=== PATIENT | male | born 1950 | race Caucasian/White ===

== ENCOUNTER 2024-08-27 22:19 | Emergency (ER) | payer OTHER ==
[~2024-08-27] VITALS: Ht 177.8 cm; Wt 75.0 kg
[2024-08-27 22:25] VITALS: O2SAT 100
[2024-08-28 00:15] VITALS: BP 151/83; PULSE 89; RESP 16; TEMP 36.83628; O2SAT 99
[2024-08-28] MEDS: ACETAMINOPHEN 325MG TABLET PO ONE (00:30)
[2024-08-28] MEDS ORDERED: IBUP-2029 MT (08:01)
== END 2024-08-28 03:22 | disposition home or self-care (01) ==
LOC: ER 22:19
DX: M79.672 Pain in left foot (principal); I10 Essential (primary) hypertension; Z59.00 Homelessness unspecified
CPT/HCPCS: 99283

== ENCOUNTER 2024-08-28 07:25 | Emergency (ER) | payer OTHER, MEDICAID ==
[~2024-08-28] VITALS: Ht 177.8 cm; Wt 75.0 kg
[2024-08-28 07:27] VITALS: O2SAT 100
[2024-08-28] MEDS ORDERED: IBUP-2029 MT (08:01)
[2024-08-28] MEDS: KETOROLAC 30MG/ML VIAL IM STA (08:46)
[2024-08-28 09:24] VITALS: BP 167/87; PULSE 54; RESP 16; TEMP 37.16964; O2SAT 100
== END 2024-08-28 09:26 | disposition home or self-care (01) ==
LOC: ER 07:25
DX: G89.29 Other chronic pain (principal); M79.675 Pain in left toe(s); I10 Essential (primary) hypertension
CPT/HCPCS: 99283; 96372; J1885